=== PATIENT | female | born 1995 | race Caucasian/White ===

== ENCOUNTER 2019-12-03 11:24 | Emergency (ER) | payer OTHER, SELFPAY ==
[2019-12-03 11:38] VITALS: BP 126/84; PULSE 100; RESP 18; TEMP 37.4; O2SAT 100
--- NOTE | 2019-12-03 11:39 | ED.FEMALEGU ---
HPI - Female Genitourinary General Chief complaint: Urogenital-Female Stated complaint: STD testing Time Seen by Provider: 12/03/19 11:45 Source: patient and RN notes reviewed Mode of arrival: ambulatory Limitations: no limitations History of Present Illness HPI Narrative: A 24 y/o female, who is a nonsmoker and nondrinker, presents to the ED with worsening dysuria for the past 3 days. She states that she gets frequent UTI's but that this pain is more severe than her typical UTI's. She reports that 2 days ago she noticed painful bumps around her vagina, so she came in to be evaluated. She notes associated lower back pain and that she is urinating less d/t the pain. She denies any ABD pain, abnormal vaginal discharge, fevers, chills, and any other medical complaints at this time; she declines pelvic exam/swabs currently MD elicited complaint: dysuria Pertinent past history: recurrent UTIs Onset (ago): day(s) (3) Location of symptoms: urethra Consistency: progressively worsening Vaginal discharge: none Urinary symptoms: Dysuria Exacerbating factors: urination Associated symptoms: back pain (lower) and other (painful lumps around vagina and less frequent urination d/t pain) Related Data Home Medications Medication Instructions Recorded Confirmed etonogestrel [Nexplanon] 1 implant SUBDERMAL ONCE 12/03/19 12/03/19 Allergies Allergy/AdvReac Type Severity Reaction Status Date / Time No Known Allergies Allergy Mild Verified 12/03/19 11:47 Review of Systems Review of Systems: Narrative: General/Constitutional: No weight loss,fever, chills Eyes: N0: Redness,discharge Ears/Nose/Throat: No: Epistaxis,ear discharge Respiratory: Denies: Hemoptysis Gastrointestinal: No Vomiting, Bleeding-rectal, ABD pain Genitourinary: Reports dysuria and less frequent urination d/t the pain. No abnormal vaginal discharge. Skin: No eruption. Reports painful lumps around her vagina. Neurologic: No Focal Weakness,Sz Hematologic: Denies: Petechiae/Purpura Psychiatric: No: Suicida ideationl All Other Systems: Reviewed and Negative [facility] Past Medical History Medical History (Updated 12/03/19 @ 12:02 by Forest Pineda MD) Frequent UTI Surgical History Surgical History (Updated 12/03/19 @ 11:40 by Ishmael Segura) No history of previous surgery Social History Social History (Updated 12/03/19 @ 11:40 by Ishmael Segura) Smoking status: Unknown if ever smoked Exam Narrative: Exam Narrative: General Appearance: Well appearing, , Conjunctiva clear Ears: External ear normal Nose: Normal nose Mouth/Throat: Normal appearing, Normal lips Neck: Supple Respiratory: Airway patent, No respiratory distress Cardiovascular: RRR Abdomen: Soft, Non-tender, No massess, No organomegaly (no rebound/ surgical signs), Skin: Maculopapular and rare papulovesicular eruption on the inguinal, introitus and inner thighs; warm, Dry Musculoskeletal: Full ROM Neurological: A&O x3, Normal affect Course Vital Signs Vital signs: Vital Signs Temperature 99.4 F 12/03/19 11:38 Pulse Rate 100 12/03/19 11:38 Respiratory Rate 18 12/03/19 11:38 Blood Pressure 126/84 12/03/19 11:38 Pulse Oximetry 100 12/03/19 11:38 Temperature 99.4 F 12/03/19 11:38 Pulse Rate 100 12/03/19 11:38 Respiratory Rate 18 12/03/19 11:38 Blood Pressure 126/84 12/03/19 11:38 Pulse Oximetry 100 12/03/19 11:38 MDM - Female Genitourinary Lab Data Labs: Urine Glucose Negative Reference Range: Negative Urine Bilirubin 1+ Reference Range: Negative Urine Ketone Negative Reference Range: Negative Urine Specific [place] 1.030 Reference Range:1.001-1.035 Urine Blood 3+ Reference Range: Negative * * Urine pH 5.5 Reference Range: 5.0-9.0 Urine Pr
--- NOTE | 2019-12-03 11:59 | PC.NURSE ---
Patient has multiple red raised areas on perineal area, no drainage visualized.
== END 2019-12-03 12:11 | disposition home or self-care (01) ==
PROVIDERS: Emergency Provider Emergency Medicine
DX: R82.81 Pyuria (principal); R21 Rash and other nonspecific skin eruption
CPT/HCPCS: 81003; 87086; 87491; 87591; 99213; G0463

== ENCOUNTER 2023-09-04 23:51 | Emergency (ER) | payer OTHER, SELFPAY ==
[2023-09-05 00:10] VITALS: BP 117/75; PULSE 82; RESP 16; TEMP 36.2; O2SAT 99
[2023-09-05 03:00] LABS: Strep Group A RT-PCR NOT DETECTED (Negative)
--- NOTE | 2023-09-05 03:05 | ED.URI ---
HPI - URI/Sore Throat General Chief Complaint: Upper Respiratory Infection Stated Complaint: sore throat Time Seen by Provider: 09/05/23 01:53 History of Present Illness [facility] Narrative: Patient presents to the emergency department with her family. She is concerned because her son recently was diagnosed with strep throat. She had a new severe sore throat and also comments on sinus congestion. Denies fevers and chills. Patient states she always gets the same bugs her son does. Related Data Home Medications Medication Instructions Recorded Confirmed etonogestrel 68 mg subdermal 1 implant subdermal ONCE 12/03/19 12/03/19 implant (Nexplanon) Allergies Allergy/AdvReac Type Severity Reaction Status Date / Time No Known Allergies Allergy Mild Verified 12/03/19 11:47 Review of Systems Review of Systems: Review of systems negative except for what is documented in the [facility] Past Medical History Medical History (Updated 09/05/23 @ 03:45 by Alize Jon MD) Frequent UTI Surgical History Surgical History (Updated 12/03/19 @ 11:40 by Ishmael Segura) No history of previous surgery Social History Social History (Updated 12/03/19 @ 11:40 by Ishmael Segura) Smoking status: Unknown if ever smoked Exam Narrative: GENERAL: Well-appearing, well-nourished, and in no acute distress. HEAD: Normocephalic, atraumatic. EYES: PERRLA and EOMI. ENT: Nares clear, no rhinorrhea or epistaxis. Mucous membranes moist. NECK: Supple. CHEST: Clear to auscultation. No respiratory distress. HEART: Regular rate and rhythm. ABDOMEN: Soft, nontender, nondistended. EXTREMITIES: Normal range of motion. No edema. SKIN: Warm, dry, no rash. NEURO: No focal deficits. Alert and oriented x3. PSYCH: Normal mood and affect. Course Course Emergency Course: Strep flu RSV and COVID are negative Vital Signs Vital signs: Vital Signs Temperature 36.2 C L 09/05/23 00:10 Pulse Rate 82 09/05/23 00:10 Respiratory Rate 16 09/05/23 00:10 Blood Pressure 117/75 09/05/23 00:10 Pulse Oximetry 99 09/05/23 00:10 Oxygen Delivery Room Air 09/05/23 00:10 Temperature 36.2 C L 09/05/23 00:10 Pulse Rate 82 09/05/23 00:10 Respiratory Rate 16 09/05/23 00:10 Blood Pressure 117/75 09/05/23 00:10 Pulse Oximetry 99 09/05/23 00:10 Oxygen Delivery Room Air 09/05/23 00:10 MDM - URI/Sore Throat Lab Data Labs: Lab Results 09/05/23 Range/Units 02:26 Influenza A (RT-PCR) Negative (Negative) Influenza B (RT-PCR) Negative (Negative) RSV (RT-PCR) Negative (Negative) SARS-CoV-2 RNA (RT-PCR) Negative (Negative) Group A Strep (PCR) Not detected (Negative) Discharge Plan Discharge Clinical Impression: Congestion of nasal sinus, Acute sore throat Patient Disposition: Home, Self-Care Condition: Stable Instructions: Antibiotic Form, Pharyngitis (ED) Prescriptions: No Action Nexplanon 68 mg Implant 1 implant SUBDERMAL ONCE Lidocaine Viscous 2 % solution 5 ml MUCOUS MEM QID PRN (Reason: pain) Qty: 100 0RF Rx Instructions: Gargle and spit valacyclovir [Valtrex] 1 gram tablet 1,000 mg PO TID Qty: 20 0RF sulfamethoxazole-trimethoprim [Bactrim DS] 800-160 mg tablet 1 tablet PO Q12H Qty: 10 0RF Follow-up/Referrals: UNKNOWN,DOCTOR [Primary Care Provider] - Time of Disposition: 03:45
[2023-09-05 03:15] LABS: Influenza A QL RT-PCR Negative (Negative); Influenza B QL RT-PCR Negative (Negative); RSV RNA, RT-PCR Negative (Negative); SARS-CoV-2 RNA PCR Negative (Negative)
[2023-09-05 04:30] VITALS: BP 127/71; PULSE 77; RESP 15; O2SAT 100
== END 2023-09-05 04:15 | disposition home or self-care (01) ==
PROVIDERS: Physician Assistant; Emergency Provider Emergency Medicine
DX: J02.9 Acute pharyngitis, unspecified (principal); R09.81 Nasal congestion; Z20.822 Contact with and (suspected) exposure to COVID-19
CPT/HCPCS: 87637; 87651; 99283

== ENCOUNTER 2023-09-05 08:22 | Emergency (ER) | payer OTHER, SELFPAY ==
--- NOTE | 2023-09-05 08:25 | ED.EYEPROB ---
HPI - Eye Problem General Chief complaint: Eye Problems Stated complaint: right eye crusty/swollen Source: patient and RN notes reviewed Mode of arrival: ambulatory Limitations: no limitations History of Present Illness HPI Narrative: Patient is a a 28-year-old female who presents to the [facility] with waking up this morning with her right eye swollen shut. There is no notable erythema surrounding the eye. Patient states that last night, she felt something in her eye and tried to remove it with her hand/fingers. Patient states she woke up this morning and noted yellow drainage from the right eye. She also reports right eye redness. Denies recent illness or fever. Related Data Allergies Allergy/AdvReac Type Severity Reaction Status Date / Time No Known Allergies Allergy Mild Verified 09/05/23 08:35 Review of Systems Review of Systems: CONSTITUTIONAL: Denies fever, chills, or sweats. EYES: Denies visual changes, but reports right eye redness and discharge. ENT: Denies otalgia and sore throat CARDIOVASCULAR: Denies chest pain, palpitations, or edema. RESPIRATORY: Denies cough or dyspnea. GASTROINTESTINAL: Denies abdominal pain, nausea, vomiting, or diarrhea. GENITOURINARY: Denies dysuria or hematuria. SKIN: Denies rash or itching. MUSCULOSKELETAL: Denies back pain, joint pain, or myalgia. NEUROLOGIC: Denies headache, numbness, or weakness. Pertinent positives per HPI. PMFSH Past Medical History Medical History Frequent UTI Surgical History Surgical History No history of previous surgery Social History Social History Smoking status: Unknown if ever smoked Comments At the time of my signature, I reviewed and agree with the nursing past medical, surgical, social, and family history. There is no relevant family history pertinent to the patient complaint. Exam Narrative: GENERAL: This is a well-nourished, well-developed patient, in no apparent distress. HEAD: normocephalic, atraumatic. EYES: PERRL. Sclera clear/white on left. Sclera injected on right. Notable yellow drainage from right eye. Vision is grossly intact. EARS: External ears normal, auditory canals clear and without drainage, TMs normal without perforation. Hearing grossly intact. NOSE: External nose normal with no obvious nasal discharge, nares without redness, no rhinorrhea. THROAT: Mucous membranes moist, posterior pharynx clear. NECK: Neck supple, non-tender without lymphadenopathy, masses or thyromegaly. CARDIOVASCULAR: Regular rate and rhythm without murmurs, gallops, or rubs. RESPIRATORY: Clear to auscultation. Breath sounds equal bilaterally. No wheezes, rales, or rhonchi. GASTROINTESTINAL: Abdomen soft, non-tender, nondistended. Bowel sounds are active. No hepato-splenomegaly, or palpable masses. No guarding. SKIN: warm, intact with no suspicious lesions or rash, good texture and turgor. NEURO: awake, alert, and oriented to person, place and time. There were no obvious focal neurologic abnormalities. Course Course Level of Care: Express Care Visit Vital Signs Vital signs: Vital Signs Temperature 97.7 F 09/05/23 08:30 Pulse Rate 96 09/05/23 08:30 Respiratory Rate 20 09/05/23 08:30 Blood Pressure 119/66 09/05/23 08:30 Pulse Oximetry 99 09/05/23 08:30 Oxygen Delivery Room Air 09/05/23 08:30 Temperature 97.7 F 09/05/23 08:30 Pulse Rate 96 09/05/23 08:30 Respiratory Rate 20 09/05/23 08:30 Blood Pressure 119/66 09/05/23 08:30 Pulse Oximetry 99 09/05/23 08:30 Oxygen Delivery Room Air 09/05/23 08:30 Reviewed Procedures FB Removal Eye Foreign Body #1: Foreign Body Removal Date: 09/05/23 Foreign Body Removal Time: 08:40 Time Out performed: Yes Location: eye (R) Topical anesthetic used: t
[2023-09-05 08:30] VITALS: BP 119/66; PULSE 96; RESP 20; TEMP 36.5; O2SAT 99
== END 2023-09-05 08:50 | disposition home or self-care (01) ==
PROVIDERS: Emergency Provider Nurse Practitioner
DX: S00.211A Abrasion of right eyelid and periocular area, initial encounter (principal); X58.XXXA Exposure to other specified factors, initial encounter
CPT/HCPCS: 99213; A9270; G0463

== ENCOUNTER 2025-06-03 10:59 | Emergency (ER) | payer OTHER, SELFPAY ==
--- NOTE | 2025-06-03 11:11 | ED.URI ---
HPI - URI/Sore Throat General Chief Complaint: Upper Respiratory Infection Stated Complaint: strep symptoms Time Seen by Provider: 06/03/25 11:18 Source: patient, RN notes reviewed and old records reviewed Mode of arrival: ambulatory Limitations: no limitations History of Present Illness HPI Narrative: 29-year-old female presents to the [facility] with complaints of a sore throat, ear pressure since yesterday. No treatment prior to arrival. Related Data Home Medications ?Medication ?Instructions ?Recorded ?Confirmed ?Last Taken ?Type No Home Medications 06/03/25 06/03/25 Unknown History Allergies Allergy/AdvReac Type Severity Reaction Status Date / Time No Known Allergies Allergy Mild Verified 06/03/25 11:16 Review of Systems Review of Systems: All systems reviewed & are unremarkable except as noted in HPI and below Constitutional: Constitutional: Reports no additional constitutional complaints ENT: Reports as per HPI and Reports sore throat Cardiovascular: Cardiovascular: Reports no additional cardiovascular complaints, Denies chest pain and Denies dyspnea Respiratory: Respiratory: Reports no additional respiratory complaints, Denies chest congestion, Denies cough and Denies dyspnea Musculoskeletal: Musculoskeletal: Reports no additional musculoskeletal complaints Integumentary/Breasts: Skin/Breast: Reports system reviewed and no additional complaints, except as docu PMFSH Past Medical History Medical History Frequent UTI Surgical History Surgical History No history of previous surgery Social History Social History Smoking status: Unknown if ever smoked Comments At the time of my signature, I reviewed and agree with the nursing past medical, surgical, social, and family history. There is no relevant family history pertinent to the patient complaint. Exam Const: General: cooperative, healthy appearing, comfortable, no acute distress, well developed, alert and well nourished Nutritional Appearance: well nourished Orientation/consciousness: patient oriented x3 Limitations: no limitations HENMT: Head: normal to inspection Ears: hearing grossly normal bilaterally, external ears normal, TM's normal bilaterally, EAC's normal, mastoids normal and no periauricular adenopathy Mouth: Yes Normal oral and palatal mucosa present, Yes lip normal, Yes tongue normal and Yes moist mucous membranes Throat: posterior oropharynx normal, uvula midline and no uvular edema Eyes: General: appearance normal, both eyes and all related structures Alignment and Position: alignment normal Neck: Neck: normal visual inspection, full ROM, no lymphadenopathy and no meningeal signs Chest: Chest palpation & inspection: normal inspection of the chest Resp: Effort & Inspection: normal respiratory effort and able to speak in complete sentences Auscultation: clear to auscultation bilaterally, no crackles, no rales, no rhonchi and no wheezes Cardio: Rate: regular rate Skin: General skin exam: normal color and no rashes or lesions noted Neuro: General: patient oriented x3, gait normal, moves all extremities and no meningeal signs Cognition (Neuro): normal cognition Speech: normal speech Gait exam (Neuro): Normal gait present Extrem: General: normal to inspection, full ROM, capillary refill normal and normal gait Psych: Appearance: grossly normal and well kempt Mental Status: mental status grossly normal Speech and movement: Normal speech and movement present and Clear speech present Affect: normal affect Attitude: cooperative Course Course Level of Care: Express Care Visit Vital Signs Vital signs: Vital Signs Temperature 97.4 F L 06/03/25 11:17 Pulse Rate 89 06/03/25 11:17 Respiratory Rate 16 06/03/25 11:17 Blood Pressure 115/75 06/03/25 11:17 Pulse Oximetry 100 06/03/25 11:17 Temperature 97.4 F L 06/03/25 11:17 Pulse Rate 89 06/03/25 11:17 Respiratory Rate 16 06/03/25 11:17 Blood Pressure 115/75 06/03/25 11:17 Pulse Oximetry 100 06/03/25 11:17 Reviewed MDM - URI/Sore Throat MDM Narrative Medical decision making narrative: Patient sitting in exam room patient is nontoxic, vitals stable. Patient presents with sore throat for 1 day. Strep test is negative, will culture No acute findings noted on exam Patient appropriate for outpatient treatment with close follow-up Discharge instructions reviewed with patient, as well as provided in writing per nursing staff. The instructions also include specific and strict return/GO TO THE ER as well as f/u information. All questions have been answered, and the patient deny any further questions with discharge and discharge plan. Some parts of this dictation were generated by voice recognition software and may contain typographical and/or grammatical inaccuracies. Differential Diagnosis Differential diagnosis: Likely upper respiratory infection, otitis media, viral infection, influenza and pharyngitis Lab Data Labs: Lab Results 06/03/25 Range/Units 11:23 POC Grp A Strep Screen Negative (Negative) Reviewed Critical Care Time Critical Care Time Critical Care Time: No Discharge Plan Discharge Clinical Impression: Pharyngitis Qualifiers: Pharyngitis/tonsillitis etiology: unspecified etiology Qualified Code(s): J02.9 - Acute pharyngitis, unspecified Patient Disposition: Home Condition: Stable Instructions: Pharyngitis (ED), Fluid In The Ear (Serous Otitis Media) (ED) Additional Instructions: Your rapid strep swab was negative today at [facility]. A throat culture will be sent to the laboratory for further testing. If the test is positive, you will receive a phone call within 48 hours and an appropriate antibiotic will be initiated at that time. It is very important to treat your symptoms. Drink plenty of water, Gatorade, Pedialyte, ice pops or Jell-O. -Alternate Tylenol and Motrin per package directions for fever or pain. You can alternate every 4 hours -Antihistamine medication such as Zyrtec/Claritin/Coco during the day can help improve symptoms. -doing daily nasal irrigations can help relieve pressure your sinuses. Things like a Neti pot -Use Flonase twice a day for 5 days then daily to help reduce the inflammation and dry up your sinuses. -You can also use Mucinex. Be sure to drink plenty of water with this medication at least 8 ounces with every dose and it is important to drink 8 to 10 glasses of water per day. Water is a natural decongestant -Eat and drink things that are easy to swallow, like tea or soup, or popsicles. -Oral rinses such as: Salt water gargles and/or may use topical anesthetic (eg. Chloraseptic spray) or lozenges to relieve dryness or throat pain). -Frequent hand washing or hand optical sales associate is one of the best ways to prevent spread of infection. -Using a vaporizer or humidifier at night will also help thin secretions and help with coughing up phlegm. -Follow up with primary care provider in 7-10 days if condition is not improving - For new or worsening symptoms go directly to the nearest ER Patient Language: Serbian Prescriptions: No Action No Home Medications Follow-up/Referrals: PHYSICIAN,ASSOCIATE DIRECTOR OF SALES [Primary Care Provider] - Time of Disposition: 11:30
[2025-06-03 11:17] VITALS: BP 115/75; PULSE 89; RESP 16; TEMP 36.3; O2SAT 100
[2025-06-03 11:24] LABS: EDSTREPNEGPOS1 Negative (Negative)
== END 2025-06-03 11:33 | disposition home or self-care (01) ==
PROVIDERS: Emergency Provider Nurse Practitioner
DX: J02.9 Acute pharyngitis, unspecified (principal)
CPT/HCPCS: 87081; 87880; 99213; G0463